=== PATIENT | female | born 1950 | race Caucasian/White ===

== ENCOUNTER 2017-06-16 13:29 | Inpatient (IN) | payer MEDICARE, MEDICAID ==
[~2017-06-16] VITALS: Ht 160 cm; Wt 78.0 kg
[2017-06-16] MEDS ORDERED: MAGNESIUM HYDROXIDE 30 ML UDC PO PRN (15:30)
[2017-06-16] MEDS ORDERED: ZOLPIDEM TARTRATE 10 MG TABLET PO PRN (15:30)
[2017-06-16] MEDS ORDERED: MAG HYDROX/AL HYDROX/SIMETH 30 ML UDC PO PRN (15:30)
[2017-06-16] MEDS ORDERED: ACETAMINOPHEN 325 MG TABLET PO PRN (15:30)
[2017-06-16] MEDS ORDERED: LORAZEPAM 0.5 MG TABLET PO PRN (15:30)
[2017-06-16] MEDS ORDERED: LAMO100T2 PO (15:50)
[2017-06-16] MEDS ORDERED: LOSA50TA21 PO (15:50)
[2017-06-16] MEDS ORDERED: CITR30SO PO (15:50)
[2017-06-16] MEDS ORDERED: CALC0.253 PO (15:50)
[2017-06-16] MEDS ORDERED: ARIP15TA3 PO (15:50)
[2017-06-16] MEDS ORDERED: HYDR-4076 PO (15:50)
[2017-06-16] MEDS ORDERED: FURO-145 PO (15:50)
[2017-06-16] MEDS ORDERED: DIVA250T4 PO (15:50)
[2017-06-16 16:54] VITALS: BP 150/80
[2017-06-16 16:56] VITALS: BP 150/80
[2017-06-16 20:00] VITALS: BP_SYST 122; BP_SYST 146; BP_DIAS 64; BP_DIAS 80
[2017-06-16] MEDS: hydrALAZINE HCL 25 MG TABLET PO SCH (21:20)
[2017-06-16] MEDS: LOSARTAN POTASSIUM 50 MG TABLET PO SCH (21:20)
[2017-06-16] MEDS: LamoTRIgine 100 MG TABLET PO SCH (21:21)
[2017-06-16] MEDS: ARIPIPRAZOLE 5 MG TABLET PO SCH (21:21)
[2017-06-17 08:00] VITALS: BP 134/61
[2017-06-17 08:39] LABS: ALBUMIN 2.9 g/dL (3.4-5.0); BILIRUBIN,TOTAL 0.2 mg/dL (0.2-1.0); CALCIUM, SERUM 8.6 mg/dL (8.5-10.1); CHOLESTEROL 185 mg/dL (<200); CREATININE 3.3 mg/dL (0.6-1.3); HDL CHOLESTEROL 108 mg/dL (40-60); LDL 62 mg/dL (0-99); TOTAL PROTEIN, SERUM 6.5 g/dL (6.4-8.2); TRIGLYCERIDES 40 mg/dL (30-150)
[2017-06-17] MEDS: DIVALPROEX SODIUM 500 MG TABLET.DR PO SCH ×2 (10:54→13:23)
[2017-06-17] MEDS: CITRIC ACID/SODIUM CITRATE (BICITRA)15 ML UDC PO SCH ×2 (10:54→17:13)
[2017-06-17] MEDS: FUROSEMIDE 20 MG TABLET PO SCH (10:54)
[2017-06-17 16:00] VITALS: BP 171/88
[2017-06-17 20:00] VITALS: BP 148/85
[2017-06-17] MEDS: ARIPIPRAZOLE 5 MG TABLET PO SCH (22:12)
[2017-06-17] MEDS: LamoTRIgine 100 MG TABLET PO SCH (22:12)
[2017-06-17] MEDS: hydrALAZINE HCL 25 MG TABLET PO SCH (22:13)
[2017-06-17] MEDS: LOSARTAN POTASSIUM 50 MG TABLET PO SCH (22:14)
[2017-06-18 08:00] VITALS: BP 124/71
[2017-06-18] MEDS: CITRIC ACID/SODIUM CITRATE (BICITRA)15 ML UDC PO SCH ×2 (08:52→16:43)
[2017-06-18] MEDS: FUROSEMIDE 20 MG TABLET PO SCH (08:52)
[2017-06-18] MEDS: DIVALPROEX SODIUM 500 MG TABLET.DR PO SCH ×2 (08:52→12:14)
[2017-06-18 16:00] VITALS: BP 148/81
[2017-06-18 20:00] VITALS: BP 147/75
[2017-06-18] MEDS: ARIPIPRAZOLE 5 MG TABLET PO SCH (21:17)
[2017-06-18] MEDS: LamoTRIgine 100 MG TABLET PO SCH (21:18)
[2017-06-18] MEDS: hydrALAZINE HCL 25 MG TABLET PO SCH (21:18)
[2017-06-18] MEDS: LOSARTAN POTASSIUM 50 MG TABLET PO SCH (21:19)
[2017-06-19 08:19] VITALS: BP 126/63
[2017-06-19] MEDS: DIVALPROEX SODIUM 500 MG TABLET.DR PO SCH ×2 (09:06→13:02)
[2017-06-19] MEDS: FUROSEMIDE 20 MG TABLET PO SCH (09:06)
[2017-06-19] MEDS: CITRIC ACID/SODIUM CITRATE (BICITRA)15 ML UDC PO SCH ×2 (09:06→17:10)
[2017-06-19 16:00] VITALS: BP 151/79
[2017-06-19 19:48] VITALS: BP 158/81
[2017-06-19] MEDS: ARIPIPRAZOLE 5 MG TABLET PO SCH (21:08)
[2017-06-19] MEDS: hydrALAZINE HCL 25 MG TABLET PO SCH (21:09)
[2017-06-19] MEDS: LamoTRIgine 100 MG TABLET PO SCH (21:09)
[2017-06-19] MEDS: LOSARTAN POTASSIUM 50 MG TABLET PO SCH (21:09)
[2017-06-20 08:00] VITALS: BP 145/90
[2017-06-20] MEDS: FUROSEMIDE 20 MG TABLET PO SCH (08:50)
[2017-06-20] MEDS: DIVALPROEX SODIUM 500 MG TABLET.DR PO SCH ×2 (08:50→12:28)
[2017-06-20] MEDS: CITRIC ACID/SODIUM CITRATE (BICITRA)15 ML UDC PO SCH ×2 (08:50→17:29)
[2017-06-20 15:58] VITALS: BP 165/87
[2017-06-20 19:50] VITALS: BP 157/84
[2017-06-20] MEDS: LamoTRIgine 100 MG TABLET PO SCH (22:04)
[2017-06-20] MEDS: ARIPIPRAZOLE 5 MG TABLET PO SCH (22:04)
[2017-06-20] MEDS: LOSARTAN POTASSIUM 50 MG TABLET PO SCH (22:04)
[2017-06-20] MEDS: hydrALAZINE HCL 25 MG TABLET PO SCH (22:05)
[2017-06-21 08:00] VITALS: BP 151/80
[2017-06-21] MEDS: FUROSEMIDE 20 MG TABLET PO SCH (09:01)
[2017-06-21] MEDS: CITRIC ACID/SODIUM CITRATE (BICITRA)15 ML UDC PO SCH ×2 (09:01→16:54)
[2017-06-21] MEDS: DIVALPROEX SODIUM 500 MG TABLET.DR PO SCH ×2 (09:01→13:15)
[2017-06-21 16:00] VITALS: BP 156/64
[2017-06-21 20:02] VITALS: BP 186/80
[2017-06-21] MEDS: ARIPIPRAZOLE 5 MG TABLET PO SCH (21:14)
[2017-06-21] MEDS: hydrALAZINE HCL 25 MG TABLET PO SCH (21:16)
[2017-06-21] MEDS: LOSARTAN POTASSIUM 50 MG TABLET PO SCH (21:17)
[2017-06-21] MEDS: LamoTRIgine 100 MG TABLET PO SCH (21:17)
[2017-06-21 22:00] VITALS: BP 135/74
[2017-06-22 06:48] LABS: BASOPHILS % (AUTO) 0.9 % (0.0-2.0); EOSINOPHILS % (AUTO) 3.9 % (0.0-6.0); HEMATOCRIT 26 % (33-45); HEMOGLOBIN 8.8 g/dL (11.5-14.8); LYMPHOCYTES # (AUTO) 1.3 /CMM (0.8-4.8); LYMPHOCYTES % (AUTO) 35.5 % (20.0-44.0); MEAN CORPUSCULAR HGB CONC 34 g/dl (31.0-36.0); MEAN CORPUSCULAR VOLUME 88 fL (82-100); MONOCYTES # (AUTO) 0.5 /CMM (0.1-1.30); MONOCYTES % (AUTO) 12.7 % (2.0-12.0); NEUTROPHILS # (AUTO) 1.7 /CMM (1.8-8.9); PLATELET COUNT (AUTO) 209 /CMM (150-450); RDW COEFFICIENT OF VARIATION 13.5 (11.5-15.0); RED BLOOD CELL COUNT(AUTO) 2.95 MIL/uL (4.0-5.2); WHITE BLOOD COUNT (AUTO) 3.6 K/uL (4.3-11.0)
[2017-06-22 07:06] LABS: CALCIUM, SERUM 8.9 mg/dL (8.5-10.1); CREATININE 3.2 mg/dL (0.6-1.3); MAGNESIUM 3.2 mg/dL (1.8-2.4); PHOSPHORUS 5.1 mg/dL (2.5-4.9); POTASSIUM 5.5 mmol/L (3.5-5.1)
[2017-06-22 09:06] VITALS: BP 139/89
[2017-06-22] MEDS: CITRIC ACID/SODIUM CITRATE (BICITRA)15 ML UDC PO SCH (09:10)
[2017-06-22] MEDS: DIVALPROEX SODIUM 500 MG TABLET.DR PO SCH ×2 (09:10→12:59)
[2017-06-22] MEDS: FUROSEMIDE 20 MG TABLET PO SCH (09:10)
[2017-06-22 16:15] LABS: APPEARANCE,URINE CLEAR (CLEAR); BILIRUBIN,URINE NEGATIVE (NEGATIVE); BLOOD, URINE NEGATIVE Ery/uL (NEGATIVE); COLOR,URINE YELLOW (YELLOW); KETONES,URINE NEGATIVE (NEGATIVE); LEUKOCYTE ESTERASE ,URINE NEGATIVE (NEGATIVE); NITRITE, URINE NEGATIVE (NEGATIVE); PH,URINE 6.5 (5.0-8.0); PROTEIN,URINE 1+ mg/dl (NEGATIVE); UGLUCOSE NEGATIVE (NEGATIVE); UROBILINOGEN,URINE 0.2 EU/dL (0.2)
[2017-06-22 16:53] LABS: BACTERIA,URINE None seen /HPF (None Seen); RBC,URINE NONE SEEN /HPF (0-2); SQUAMOUS EPITHELIAL CELL,UR Rare /HPF (None Seen); WBC,URINE NONE SEEN /HPF (0-3)
[2017-06-22 16:56] LABS: CREATININE, URINE 13.7 MG/DL (30.0-125.0); URINE TOTAL PROTEIN 75.3 mg/dL (0-11.9)
[2017-06-22 17:39] LABS: EOSINOPHIL,URINE Rare
[2017-06-24] MEDS ORDERED: CALCITRIOL 0.25 MCG CAPSULE PO SCH (07:30)
== END 2017-06-22 16:20 | disposition home or self-care (01) | DRG 885 ==
LOC: GPS 13:29
PROVIDERS: ADMIT Psychiatry & Neurology Psychiatry; ATTEND Psychiatry & Neurology Psychiatry
DX: F31.10 Bipolar disorder, current episode manic without psychotic features, unspecified (principal); D64.9 Anemia, unspecified; F41.9 Anxiety disorder, unspecified; Z73.6 Limitation of activities due to disability; I10 Essential (primary) hypertension; G47.00 Insomnia, unspecified
CPT/HCPCS: 36415; 80048-TC; 80053-TC; 80061-TC; 81000-TC; 82570-TC; 83735-TC; 84100-TC; 84155-TC; 84300-TC; 85025-TC; 87081-TC

== ENCOUNTER 2023-08-17 15:18 | Inpatient (IN) | payer MEDICARE, OTHER ==
[~2023-08-17] VITALS: Ht 170.2 cm; Wt 93.4 kg
[~2023-08-17 15:18] MED LIST: CALC0.253 PO; CITR30SO PO; FURO-145 PO; HYDR-4076 PO; LOSA50TA39 PO
[2023-08-17 16:04] LABS: BASOPHILS % (AUTO) 0.1 % (0.0-2.0); HEMATOCRIT 31 % (33-45); HEMOGLOBIN 10.4 g/dL (11.5-14.8); LYMPHOCYTES # (AUTO) 0.3 K/uL (0.8-4.8); MEAN CORPUSCULAR HEMOGLOBIN 33 PG (26.0-33.0); MEAN CORPUSCULAR HGB CONC 33 g/dl (31.0-36.0); MEAN CORPUSCULAR VOLUME 99 fL (82-100); MONOCYTES # (AUTO) 0.5 K/uL (0.1-1.30); MONOCYTES % (AUTO) 5.7 % (2.0-12.0); NEUTROPHILS # (AUTO) 7.2 K/uL (1.8-8.9); NEUTROPHILS % (AUTO) 90.2 % (43.0-81.0); PLATELET COUNT (AUTO) 92 K/uL (150-450); RED BLOOD CELL COUNT(AUTO) 3.16 MIL/uL (4.0-5.2); RED CELL DISTRIBUTION WIDTH 18.1 % (11.5-15.0)
[2023-08-17] MEDS ORDERED: ARIP10TA9 PO (16:10)
[2023-08-17] MEDS ORDERED: BISA10SU11 RC (16:10)
[2023-08-17] MEDS ORDERED: LATA7.5D EACHEYE (16:10)
[2023-08-17] MEDS ORDERED: DIVA-78 PO (16:10)
[2023-08-17] MEDS ORDERED: [UNRECOGNIZED DRUG - OTHER] PO (16:10)
[2023-08-17] MEDS ORDERED: AMLO10TA4 PO (16:10)
[2023-08-17] MEDS ORDERED: BENZ-13 PO (16:10)
[2023-08-17] MEDS ORDERED: BUDE0.5A4 IH (16:10)
[2023-08-17] MEDS ORDERED: LOSA100T31 PO (16:10)
[2023-08-17] MEDS ORDERED: LABE300T2 PO (16:10)
[2023-08-17] MEDS ORDERED: LAMO100T17 PO (16:10)
[2023-08-17] MEDS ORDERED: ACET-2030 PO (16:10)
[2023-08-17] MEDS ORDERED: ASCO-352 PO (16:10)
[2023-08-17] MEDS ORDERED: FOLI0.8T2 PO (16:10)
[2023-08-17] MEDS ORDERED: SEVE0.8P3 PO (16:10)
[2023-08-17] MEDS ORDERED: POLY17PO4 PO (16:10)
[2023-08-17] MEDS ORDERED: MUPI22OI7 TP (16:10)
[2023-08-17] MEDS ORDERED: APIX2.5T PO (16:10)
[2023-08-17] MEDS ORDERED: IPRA0.2S49 IH (16:10)
[2023-08-17 16:17] LABS: CARBON DIOXIDE 24 mmol/L (21-32); CHLORIDE 95 mmol/L (98-107); CREATININE 4.3 mg/dL (0.6-1.3); GLUCOSE 126 mg/dL (74-106); POTASSIUM 5.5 mmol/L (3.5-5.1); SODIUM SERUM 132 mmol/L (136-145); UREA NITROGEN, BLOOD 55 mg/dL (7-18)
[2023-08-17 16:18] LABS: INR 1.21 (0.91-1.10); PARTIAL THROMBOPLASTIN TIME 33.8 SEC (24.3-34.3); PROTHROMBIN TIME 12.7 SECS (9.2-11.1)
[2023-08-17 16:30] LABS: ALANINE AMINOTRANSFERASE 19 U/L (12-78); ALBUMIN 2.6 g/dL (3.4-5.0); ALKALINE PHOSPHATASE 299 U/L (46-116); ASPARTATE AMINOTRANSFERASE 23 U/L (15-37); BILIRUBIN,DIRECT 0.2 mg/dL (0.0-0.2); BILIRUBIN,TOTAL 0.9 mg/dL (0.2-1.0); NT-PRO BNP > 25000 pg/mL (0-125); TOTAL PROTEIN, SERUM 7.1 g/dL (6.4-8.2)
[2023-08-17] MEDS ORDERED: MAG HYDROX/AL HYDROX/SIMETH 30 ML UDC PO PRN (18:00)
[2023-08-17] MEDS ORDERED: ZOLPIDEM TARTRATE 5 MG TABLET PO PRN (18:00)
[2023-08-17] MEDS ORDERED: Z GUARD REMEDY 4 OZ OINT TP PRN (18:00)
[2023-08-17] MEDS ORDERED: ONDANSETRON HCL/PF 4 MG/2 ML VIAL IVP PRN (18:00)
[2023-08-17] MEDS ORDERED: MAGNESIUM HYDROXIDE 30 ML UDC PO PRN (18:00)
[2023-08-17] MEDS ORDERED: BISACODYL SUPP (10 MG) 10 MG/SUPP.RECT SUPP.RECT RC PRN (18:30)
[2023-08-17] MEDS ORDERED: TSP PO PRN (18:30)
[2023-08-17 19:30] VITALS: BP 113/72; TEMP 97.6; O2SAT 97
[2023-08-17 20:00] VITALS: BP 124/78; O2SAT 98
[2023-08-17] MEDS ORDERED: ENOXAPARIN SODIUM 30 MG/0.3 ML DISP.SYRIN SQ SCH ×2 (20:00→21:00)
[2023-08-17 20:13] VITALS: O2SAT 97
[2023-08-17 21:00] VITALS: BP 116/69
[2023-08-17] MEDS: EPOETIN ALFA (10,000 UNIT) 10,000 UNIT/ML VIAL IV ONE (21:11)
[2023-08-17] MEDS: LATANOPROST EYE DROP 0.005% 2.5 ML BOTTLE EACHEYE SCH (21:11)
[2023-08-17 22:00] VITALS: BP 108/65; O2SAT 97
[2023-08-17] MEDS: LamoTRIgine 100 MG TABLET PO SCH (22:01)
[2023-08-17] MEDS: ACETAMINOPHEN 325 MG TABLET PO PRN (22:09)
[2023-08-17 23:00] VITALS: BP 112/70; O2SAT 95
[2023-08-18] VITALS (32 sets, daily range): BP systolic 107–150; BP diastolic 58–98; TEMP 97.5–98; O2SAT 86–97
[2023-08-18 07:17] LABS: BASOPHILS % (AUTO) 0.3 % (0.0-2.0); EOSINOPHILS % (AUTO) 0.5 % (0.0-6.0); HEMATOCRIT 32 % (33-45); HEMOGLOBIN 10.5 g/dL (11.5-14.8); LYMPHOCYTES # (AUTO) 0.5 K/uL (0.8-4.8); LYMPHOCYTES % (AUTO) 7.4 % (20.0-44.0); MEAN CORPUSCULAR HEMOGLOBIN 33 PG (26.0-33.0); MEAN CORPUSCULAR HGB CONC 33 g/dl (31.0-36.0); MEAN CORPUSCULAR VOLUME 101 fL (82-100); MONOCYTES # (AUTO) 0.5 K/uL (0.1-1.30); MONOCYTES % (AUTO) 8.7 % (2.0-12.0); NEUTROPHILS # (AUTO) 5.1 K/uL (1.8-8.9); NEUTROPHILS % (AUTO) 83.1 % (43.0-81.0); PLATELET COUNT (AUTO) 73 K/uL (150-450); RED BLOOD CELL COUNT(AUTO) 3.15 MIL/uL (4.0-5.2); RED CELL DISTRIBUTION WIDTH 18.3 % (11.5-15.0); WHITE BLOOD COUNT (AUTO) 6.1 K/uL (4.3-11.0)
[2023-08-18 07:23] LABS: CALCIUM, SERUM 9.6 mg/dL (8.5-10.1); CREATININE 3.5 mg/dL (0.6-1.3); MAGNESIUM 2.5 mg/dL (1.8-2.4); PHOSPHORUS 6.3 mg/dL (2.5-4.9); POTASSIUM 5.9 mmol/L (3.5-5.1)
[2023-08-18] MEDS: PANTOPRAZOLE 40 MG TABLET.DR PO SCH (08:00)
[2023-08-18] MEDS: SEVELAMER CARBONATE 800 MG POWD.PACK PO SCH (08:00)
[2023-08-18] MEDS: APIXABAN 2.5 MG TABLET PO SCH (09:00)
[2023-08-18] MEDS ORDERED: BUDESONIDE RESPULE INH 0.5 MG/2 ML AMPUL.NEB IH SCH (09:00)
[2023-08-18] MEDS ORDERED: LOSARTAN POTASSIUM 50 MG TABLET PO SCH (09:00)
[2023-08-18] MEDS: DIVALPROEX SODIUM 500 MG TABLET.DR PO SCH (09:35)
[2023-08-18] MEDS: ASCORBIC ACID 500 MG TABLET PO SCH (09:35)
[2023-08-18] MEDS: AMLODIPINE BESYLATE 10 MG TABLET PO SCH (09:36)
[2023-08-18] MEDS: ARIPIPRAZOLE 5 MG TABLET PO SCH (09:36)
[2023-08-18] MEDS: MUPIROCIN OINT 2% 22 GM TUBE TP SCH (09:37)
[2023-08-18] MEDS: LABETALOL HCL (100MG) 100 MG TABLET PO SCH (09:37)
[2023-08-18] MEDS: VIT B CMPLX 3/FA/VIT C/BIOTIN 1 TAB TABLET PO SCH (09:38)
[2023-08-18 10:35] LABS: ANISOCYTOSIS 1+; BASOPHILS % (MANUAL) 0 % (0.0-2.0); EOSINOPHILS % (MANUAL) 0 % (0-4); LYMPHOCYTES % (MANUAL) 6 % (16-48); MONOCYTES % (MANUAL) 9 % (0-11.0); NEUTROPHILS % (MANUAL) 85 (42-76); PLATELET ESTIMATE DECREASED
[2023-08-18] MEDS: IPRATROPIUM NEB FS 0.5 MG/2.5 ML AMPUL.NEB NEB SCH (16:05)
[2023-08-18] MEDS: SIMETHICONE 80 MG TAB.CHEW PO PRN (16:21)
[2023-08-18] MEDS: BUDESONIDE RESPULE INH 0.5 MG/2 ML AMPUL.NEB IH SCH (19:36)
[2023-08-19] VITALS (87 sets, daily range): BP systolic 111–144; BP diastolic 55–86; TEMP 97.8–98.4; O2SAT 89–100
[2023-08-19 04:39] LABS: BASOPHILS % (AUTO) 0.6 % (0.0-2.0); EOSINOPHILS % (AUTO) 0.2 % (0.0-6.0); HEMATOCRIT 30 % (33-45); HEMOGLOBIN 9.8 g/dL (11.5-14.8); LYMPHOCYTES # (AUTO) 0.4 K/uL (0.8-4.8); LYMPHOCYTES % (AUTO) 8.8 % (20.0-44.0); MEAN CORPUSCULAR HEMOGLOBIN 33 PG (26.0-33.0); MEAN CORPUSCULAR HGB CONC 33 g/dl (31.0-36.0); MEAN CORPUSCULAR VOLUME 100 fL (82-100); MONOCYTES # (AUTO) 0.6 K/uL (0.1-1.30); MONOCYTES % (AUTO) 11.8 % (2.0-12.0); NEUTROPHILS # (AUTO) 3.9 K/uL (1.8-8.9); NEUTROPHILS % (AUTO) 78.6 % (43.0-81.0); PLATELET COUNT (AUTO) 79 K/uL (150-450); RED CELL DISTRIBUTION WIDTH 17.6 % (11.5-15.0)
[2023-08-19 04:52] LABS: CALCIUM, SERUM 9.7 mg/dL (8.5-10.1); CREATININE 3.3 mg/dL (0.6-1.3); MAGNESIUM 2.4 mg/dL (1.8-2.4); PHOSPHORUS 6.1 mg/dL (2.5-4.9); POTASSIUM 4.4 mmol/L (3.5-5.1)
[2023-08-19 05:18] LABS: BASOPHILS % (MANUAL) 0 % (0.0-2.0); EOSINOPHILS % (MANUAL) 0 % (0-4); LYMPHOCYTES % (MANUAL) 9 % (16-48); MONOCYTES % (MANUAL) 10 % (0-11.0); NEUTROPHILS % (MANUAL) 81 (42-76); PLATELET ESTIMATE DECREASED
[2023-08-19 05:19] LABS: ANISOCYTOSIS 1+; HYPOCHROMASIA 1+
[2023-08-19] MEDS: SEVELAMER CARBONATE 800 MG TABLET PO SCH (09:22)
[2023-08-19 11:07] LABS: HEPATITIS B SURFACE AB Reactive (.)
[2023-08-20] VITALS (55 sets, daily range): BP systolic 117–154; BP diastolic 55–109; TEMP 97.3–98; O2SAT 20–100
[2023-08-20 05:03] LABS: BASOPHILS % (AUTO) 0.3 % (0.0-2.0); EOSINOPHILS % (AUTO) 0.4 % (0.0-6.0); HEMATOCRIT 31 % (33-45); HEMOGLOBIN 10.2 g/dL (11.5-14.8); LYMPHOCYTES # (AUTO) 0.5 K/uL (0.8-4.8); LYMPHOCYTES % (AUTO) 8.8 % (20.0-44.0); MEAN CORPUSCULAR HEMOGLOBIN 33 PG (26.0-33.0); MEAN CORPUSCULAR HGB CONC 33 g/dl (31.0-36.0); MEAN CORPUSCULAR VOLUME 98 fL (82-100); MONOCYTES # (AUTO) 0.8 K/uL (0.1-1.30); MONOCYTES % (AUTO) 15.9 % (2.0-12.0); NEUTROPHILS # (AUTO) 3.9 K/uL (1.8-8.9); NEUTROPHILS % (AUTO) 74.6 % (43.0-81.0); PLATELET COUNT (AUTO) 81 K/uL (150-450); RED BLOOD CELL COUNT(AUTO) 3.11 MIL/uL (4.0-5.2); RED CELL DISTRIBUTION WIDTH 17.4 % (11.5-15.0); WHITE BLOOD COUNT (AUTO) 5.2 K/uL (4.3-11.0)
[2023-08-20 05:16] LABS: CALCIUM, SERUM 8.9 mg/dL (8.5-10.1); MAGNESIUM 2.2 mg/dL (1.8-2.4)
[2023-08-20 05:32] LABS: ANISOCYTOSIS 1+; BASOPHILS % (MANUAL) 0 % (0.0-2.0); EOSINOPHILS % (MANUAL) 0 % (0-4); LYMPHOCYTES % (MANUAL) 10 % (16-48); MONOCYTES % (MANUAL) 18 % (0-11.0); NEUTROPHILS % (MANUAL) 72 (42-76); PLATELET ESTIMATE DECREASED
[2023-08-20] MEDS: ACETAMINOPHEN ES 500 MG TABLET PO PRN (23:15)
[2023-08-21] VITALS (11 sets, daily range): BP systolic 108–153; BP diastolic 61–78; TEMP 97.3–99.1; O2SAT 94–97
[2023-08-21 07:44] LABS: BASOPHILS % (AUTO) 0.4 % (0.0-2.0); EOSINOPHILS # (AUTO) 0.1 K/uL (0.0-0.7); EOSINOPHILS % (AUTO) 1.1 % (0.0-6.0); HEMATOCRIT 30 % (33-45); HEMOGLOBIN 9.9 g/dL (11.5-14.8); LYMPHOCYTES # (AUTO) 0.5 K/uL (0.8-4.8); LYMPHOCYTES % (AUTO) 8.5 % (20.0-44.0); MEAN CORPUSCULAR HEMOGLOBIN 33 PG (26.0-33.0); MEAN CORPUSCULAR HGB CONC 33 g/dl (31.0-36.0); MEAN CORPUSCULAR VOLUME 100 fL (82-100); MONOCYTES # (AUTO) 0.8 K/uL (0.1-1.30); MONOCYTES % (AUTO) 13.5 % (2.0-12.0); NEUTROPHILS # (AUTO) 4.3 K/uL (1.8-8.9); NEUTROPHILS % (AUTO) 76.5 % (43.0-81.0); PLATELET COUNT (AUTO) 64 K/uL (150-450); RED BLOOD CELL COUNT(AUTO) 3.03 MIL/uL (4.0-5.2); RED CELL DISTRIBUTION WIDTH 17.4 % (11.5-15.0); WHITE BLOOD COUNT (AUTO) 5.6 K/uL (4.3-11.0)
[2023-08-21 08:04] LABS: CALCIUM, SERUM 9.8 mg/dL (8.5-10.1); CREATININE 3.4 mg/dL (0.6-1.3)
[2023-08-21 08:05] LABS: MAGNESIUM 2.4 mg/dL (1.8-2.4); PHOSPHORUS 4.8 mg/dL (2.5-4.9)
[2023-08-21 09:15] LABS: EOSINOPHILS % (MANUAL) 1 % (0-4); LYMPHOCYTES % (MANUAL) 9 % (16-48); MONOCYTES % (MANUAL) 14 % (0-11.0); NEUTROPHILS % (MANUAL) 76 (42-76)
[2023-08-21 09:16] LABS: ANISOCYTOSIS 1+; PLATELET ESTIMATE DECREASED
[2023-08-21] MEDS: POLYETHYLENE GLYCOL 3350 17 GM POWD.PACK PO PRN (13:11)
[2023-08-22] VITALS (37 sets, daily range): BP systolic 116–147; BP diastolic 62–83; TEMP 97.2–98.4; O2SAT 91–100
[2023-08-22 06:59] LABS: BASOPHILS % (AUTO) 0.5 % (0.0-2.0); EOSINOPHILS # (AUTO) 0.1 K/uL (0.0-0.7); EOSINOPHILS % (AUTO) 1.1 % (0.0-6.0); HEMATOCRIT 32 % (33-45); HEMOGLOBIN 10.2 g/dL (11.5-14.8); LYMPHOCYTES # (AUTO) 0.5 K/uL (0.8-4.8); LYMPHOCYTES % (AUTO) 7.5 % (20.0-44.0); MEAN CORPUSCULAR HEMOGLOBIN 33 PG (26.0-33.0); MEAN CORPUSCULAR HGB CONC 32 g/dl (31.0-36.0); MEAN CORPUSCULAR VOLUME 101 fL (82-100); MONOCYTES # (AUTO) 0.9 K/uL (0.1-1.30); MONOCYTES % (AUTO) 14.9 % (2.0-12.0); NEUTROPHILS # (AUTO) 4.8 K/uL (1.8-8.9); PLATELET COUNT (AUTO) 63 K/uL (150-450); RED BLOOD CELL COUNT(AUTO) 3.15 MIL/uL (4.0-5.2); RED CELL DISTRIBUTION WIDTH 17.6 % (11.5-15.0); WHITE BLOOD COUNT (AUTO) 6.4 K/uL (4.3-11.0)
[2023-08-22 07:11] LABS: CALCIUM, SERUM 9.4 mg/dL (8.5-10.1); MAGNESIUM 2.2 mg/dL (1.8-2.4); PHOSPHORUS 4.6 mg/dL (2.5-4.9); POTASSIUM 4.4 mmol/L (3.5-5.1)
[2023-08-22 12:04] LABS: ANISOCYTOSIS 1+; BASOPHILS % (MANUAL) 0 % (0.0-2.0); EOSINOPHILS % (MANUAL) 2 % (0-4); LYMPHOCYTES % (MANUAL) 9 % (16-48); MONOCYTES % (MANUAL) 15 % (0-11.0); NEUTROPHILS % (MANUAL) 74 (42-76); PLATELET ESTIMATE DECREASED
[2023-08-22 12:05] LABS: OVALOCYTES 1+
[2023-08-22 13:07] LABS: ABG BASE EXCESS 1.3 mmol/L; ABG OXYGEN SATURATION 93.6 % (92.0-98.5); ABG PCO2 60.2 mmHg (35.0-45.0); ABG PH 7.298 (7.350-7.450); ABG PO2 77.2 mmHg (75.0-100.0); ABG TOTAL HEMOGLOBIN 11.5 G/dL (12.0-16.0); AaDO2 226.1 mmHg; COHb 0.9 % (0.5-1.5); MetHb 0.1 % (0.0-1.5); O2Hb 92.7 % (94.0-97.0); SITE, ABG Right Radial; VENT MODE, BG bipap 15/5 r20
[2023-08-22 16:25] LABS: ABG BASE EXCESS 2.4 mmol/L; ABG OXYGEN SATURATION 95.4 % (92.0-98.5); ABG PCO2 46.9 mmHg (35.0-45.0); ABG PH 7.391 (7.350-7.450); ABG PO2 82.7 mmHg (75.0-100.0); ABG TOTAL HEMOGLOBIN 10.8 G/dL (12.0-16.0); AaDO2 148.6 mmHg; COHb 0.4 % (0.5-1.5); MetHb 0.2 % (0.0-1.5); O2Hb 94.8 % (94.0-97.0); SITE, ABG Right Radial; VENT MODE, BG bipap 25/5 r20 40%
[2023-08-23] VITALS (35 sets, daily range): BP systolic 117–157; BP diastolic 63–93; TEMP 97.4–98.3; O2SAT 88–100
[2023-08-23 04:31] LABS: BASOPHILS % (AUTO) 0.3 % (0.0-2.0); EOSINOPHILS # (AUTO) 0.2 K/uL (0.0-0.7); EOSINOPHILS % (AUTO) 2.8 % (0.0-6.0); HEMATOCRIT 30 % (33-45); HEMOGLOBIN 9.7 g/dL (11.5-14.8); LYMPHOCYTES # (AUTO) 0.5 K/uL (0.8-4.8); LYMPHOCYTES % (AUTO) 8.6 % (20.0-44.0); MEAN CORPUSCULAR HEMOGLOBIN 33 PG (26.0-33.0); MEAN CORPUSCULAR HGB CONC 33 g/dl (31.0-36.0); MEAN CORPUSCULAR VOLUME 101 fL (82-100); MONOCYTES % (AUTO) 16.7 % (2.0-12.0); NEUTROPHILS # (AUTO) 4.3 K/uL (1.8-8.9); NEUTROPHILS % (AUTO) 71.6 % (43.0-81.0); PLATELET COUNT (AUTO) 66 K/uL (150-450); RED BLOOD CELL COUNT(AUTO) 2.97 MIL/uL (4.0-5.2); RED CELL DISTRIBUTION WIDTH 16.7 % (11.5-15.0)
[2023-08-23 05:41] LABS: ANISOCYTOSIS 1+; BASOPHILS % (MANUAL) 0 % (0.0-2.0); EOSINOPHILS % (MANUAL) 6 % (0-4); HYPOCHROMASIA 1+; LYMPHOCYTES % (MANUAL) 7 % (16-48); MONOCYTES % (MANUAL) 14 % (0-11.0); NEUTROPHILS % (MANUAL) 75 (42-76); OVALOCYTES 1+; PLATELET ESTIMATE DECREASED
[2023-08-23 05:59] LABS: CALCIUM, SERUM 9.1 mg/dL (8.5-10.1); CREATININE 2.8 mg/dL (0.6-1.3); MAGNESIUM 2.2 mg/dL (1.8-2.4); PHOSPHORUS 3.6 mg/dL (2.5-4.9)
[2023-08-24] VITALS (34 sets, daily range): BP systolic 109–149; BP diastolic 62–93; TEMP 97.8–98.4; O2SAT 92–100
[2023-08-24 09:19] LABS: ABG BASE EXCESS -1.1 mmol/L; ABG OXYGEN SATURATION 93.9 % (92.0-98.5); ABG PCO2 57.4 mmHg (35.0-45.0); ABG PO2 81.9 mmHg (75.0-100.0); ABG TOTAL HEMOGLOBIN 11.5 G/dL (12.0-16.0); AaDO2 108.2 mmHg; COHb 1.2 % (0.5-1.5); MetHb 0.1 % (0.0-1.5); O2Hb 92.7 % (94.0-97.0); SITE, ABG Right Radial; VENT MODE, BG NASAL CANNULA
[2023-08-24 09:52] LABS: BASOPHILS % (AUTO) 0.5 % (0.0-2.0); EOSINOPHILS # (AUTO) 0.2 K/uL (0.0-0.7); EOSINOPHILS % (AUTO) 1.8 % (0.0-6.0); HEMATOCRIT 32 % (33-45); HEMOGLOBIN 10.4 g/dL (11.5-14.8); LYMPHOCYTES # (AUTO) 0.6 K/uL (0.8-4.8); LYMPHOCYTES % (AUTO) 7.1 % (20.0-44.0); MEAN CORPUSCULAR HEMOGLOBIN 32 PG (26.0-33.0); MEAN CORPUSCULAR HGB CONC 32 g/dl (31.0-36.0); MEAN CORPUSCULAR VOLUME 100 fL (82-100); NEUTROPHILS # (AUTO) 6.8 K/uL (1.8-8.9); NEUTROPHILS % (AUTO) 78.6 % (43.0-81.0); PLATELET COUNT (AUTO) 80 K/uL (150-450); RED BLOOD CELL COUNT(AUTO) 3.24 MIL/uL (4.0-5.2); RED CELL DISTRIBUTION WIDTH 17.7 % (11.5-15.0); WHITE BLOOD COUNT (AUTO) 8.7 K/uL (4.3-11.0)
[2023-08-24 10:01] LABS: CALCIUM, SERUM 9.9 mg/dL (8.5-10.1); CREATININE 3.9 mg/dL (0.6-1.3); POTASSIUM 4.1 mmol/L (3.5-5.1)
[2023-08-24 10:08] LABS: ALBUMIN 2.1 g/dL (3.4-5.0); TOTAL PROTEIN, SERUM 6.6 g/dL (6.4-8.2)
[2023-08-24 12:05] LABS: ANISOCYTOSIS 1+; BASOPHILS % (MANUAL) 0 % (0.0-2.0); EOSINOPHILS % (MANUAL) 1 % (0-4); LYMPHOCYTES % (MANUAL) 8 % (16-48); MONOCYTES % (MANUAL) 11 % (0-11.0); NEUTROPHILS % (MANUAL) 81 (42-76); PLATELET ESTIMATE DECREASED
[2023-08-24] MEDS ORDERED: ALBUMIN 25% 25 GM in PREMIX 1 EA IV PRN (17:00)
[2023-08-25] VITALS (34 sets, daily range): BP systolic 96–139; BP diastolic 55–87; TEMP 97–98.1; O2SAT 95–100
[2023-08-25 04:58] LABS: BASOPHILS # (AUTO) 0.1 K/uL (0.0-0.2); BASOPHILS % (AUTO) 0.8 % (0.0-2.0); EOSINOPHILS # (AUTO) 0.2 K/uL (0.0-0.7); HEMATOCRIT 31 % (33-45); HEMOGLOBIN 9.9 g/dL (11.5-14.8); LYMPHOCYTES # (AUTO) 0.6 K/uL (0.8-4.8); LYMPHOCYTES % (AUTO) 9.6 % (20.0-44.0); MEAN CORPUSCULAR HEMOGLOBIN 32 PG (26.0-33.0); MEAN CORPUSCULAR HGB CONC 32 g/dl (31.0-36.0); MEAN CORPUSCULAR VOLUME 99 fL (82-100); MONOCYTES # (AUTO) 0.8 K/uL (0.1-1.30); MONOCYTES % (AUTO) 11.9 % (2.0-12.0); NEUTROPHILS # (AUTO) 4.8 K/uL (1.8-8.9); NEUTROPHILS % (AUTO) 74.7 % (43.0-81.0); PLATELET COUNT (AUTO) 85 K/uL (150-450); RED BLOOD CELL COUNT(AUTO) 3.08 MIL/uL (4.0-5.2); RED CELL DISTRIBUTION WIDTH 16.6 % (11.5-15.0); WHITE BLOOD COUNT (AUTO) 6.4 K/uL (4.3-11.0)
[2023-08-25 05:10] LABS: ALBUMIN 1.9 g/dL (3.4-5.0); BILIRUBIN,TOTAL 0.9 mg/dL (0.2-1.0); CALCIUM, SERUM 9.8 mg/dL (8.5-10.1); POTASSIUM 3.6 mmol/L (3.5-5.1); TOTAL PROTEIN, SERUM 6.1 g/dL (6.4-8.2)
[2023-08-25 05:42] LABS: ANISOCYTOSIS 1+; BASOPHILS % (MANUAL) 0 % (0.0-2.0); EOSINOPHILS % (MANUAL) 3 % (0-4); LYMPHOCYTES % (MANUAL) 10 % (16-48); MONOCYTES % (MANUAL) 11 % (0-11.0); NEUTROPHILS % (MANUAL) 76 (42-76); OVALOCYTES 1+; PLATELET ESTIMATE DECREASED; STOMATOCYTES 1+
[2023-08-26] VITALS (25 sets, daily range): BP systolic 111–154; BP diastolic 52–107; TEMP 97.5–97.9; O2SAT 95–100
[2023-08-26 04:50] LABS: BASOPHILS % (AUTO) 0.6 % (0.0-2.0); EOSINOPHILS # (AUTO) 0.1 K/uL (0.0-0.7); EOSINOPHILS % (AUTO) 2.4 % (0.0-6.0); HEMATOCRIT 29 % (33-45); HEMOGLOBIN 9.2 g/dL (11.5-14.8); LYMPHOCYTES # (AUTO) 0.7 K/uL (0.8-4.8); LYMPHOCYTES % (AUTO) 12.4 % (20.0-44.0); MEAN CORPUSCULAR HEMOGLOBIN 33 PG (26.0-33.0); MEAN CORPUSCULAR HGB CONC 32 g/dl (31.0-36.0); MEAN CORPUSCULAR VOLUME 101 fL (82-100); MONOCYTES # (AUTO) 0.7 K/uL (0.1-1.30); MONOCYTES % (AUTO) 12.7 % (2.0-12.0); NEUTROPHILS % (AUTO) 71.9 % (43.0-81.0); PLATELET COUNT (AUTO) 90 K/uL (150-450); RED BLOOD CELL COUNT(AUTO) 2.83 MIL/uL (4.0-5.2); RED CELL DISTRIBUTION WIDTH 17.1 % (11.5-15.0); WHITE BLOOD COUNT (AUTO) 5.6 K/uL (4.3-11.0)
[2023-08-26 05:03] LABS: ALANINE AMINOTRANSFERASE 6 U/L (12-78); ALBUMIN 1.9 g/dL (3.4-5.0); ALKALINE PHOSPHATASE 168 U/L (46-116); ASPARTATE AMINOTRANSFERASE < 5 U/L (15-37); BILIRUBIN,TOTAL 0.8 mg/dL (0.2-1.0); CALCIUM, SERUM 9.1 mg/dL (8.5-10.1); CARBON DIOXIDE 28 mmol/L (21-32); CHLORIDE 99 mmol/L (98-107); CREATININE 2.9 mg/dL (0.6-1.3); GLUCOSE 81 mg/dL (74-106); POTASSIUM 3.6 mmol/L (3.5-5.1); SODIUM SERUM 136 mmol/L (136-145); TOTAL PROTEIN, SERUM 5.9 g/dL (6.4-8.2); UREA NITROGEN, BLOOD 22 mg/dL (7-18)
[2023-08-26 06:03] LABS: ANISOCYTOSIS 1+; BASOPHILS % (MANUAL) 0 % (0.0-2.0); EOSINOPHILS % (MANUAL) 3 % (0-4); LYMPHOCYTES % (MANUAL) 14 % (16-48); MONOCYTES % (MANUAL) 10 % (0-11.0); NEUTROPHILS % (MANUAL) 73 (42-76); PLATELET ESTIMATE DECREASED
[2023-08-26 06:04] LABS: OVALOCYTES 1+
[2023-08-26] MEDS: DOCUSATE SODIUM 100 MG CAPSULE PO SCH (09:17)
[2023-08-26] MEDS: POLYETHYLENE GLYCOL 3350 17 GM POWD.PACK PO SCH (09:17)
[2023-08-26 12:44] LABS: PROTEIN, BODY FLUID 2.2 G/DL
[2023-08-26 19:48] LABS: APPEARANCE,SPUN,BODY FLUID CLEAR (CLEAR); TOTAL VOLUME,BODY FLUID 1600 mL
[2023-08-26 19:55] LABS: MACROPHAGES, BODY FLUID 9; POLYNUCLEAR, BODY FLUID 32 % (0-25)
[2023-08-26 19:56] LABS: MONOCYTES,BODY FLUID 6 %
[2023-08-26 20:02] LABS: WBC, BODY FLUID 76 /cu. mm. (0-200)
== END 2023-08-26 19:50 | disposition short-term general hospital (02) | DRG 291 ==
LOC: ER 15:24 → TELE-TD 16:41 → ICU 17:32 → TELE-TD 08-21 00:05 → TELE1 08-21 00:14 → ICU 08-22 09:52
PROVIDERS: ADMIT Student in an Organized Health Care Education/Training Program; ATTEND Internal Medicine
PROC: 5A09557 Assistance with Respiratory Ventilation, Greater than 96 Consecutive Hours, Continuous Positive Airway Pressure (ICD-10-PCS; principal; 2023-08-17)
PROC: 5A1D70Z Performance of Urinary Filtration, Intermittent, Less than 6 Hours Per Day (ICD-10-PCS; 2023-08-17)
PROC: 0W993ZX Drainage of Right Pleural Cavity, Percutaneous Approach, Diagnostic (ICD-10-PCS; 2023-08-26)
DX: I13.2 Hypertensive heart and chronic kidney disease with heart failure and with stage 5 chronic kidney disease, or end stage renal disease (principal); I50.31 Acute diastolic (congestive) heart failure; J96.21 Acute and chronic respiratory failure with hypoxia; N18.6 End stage renal disease; J96.22 Acute and chronic respiratory failure with hypercapnia; E44.0 Moderate protein-calorie malnutrition; E87.1 Hypo-osmolality and hyponatremia; J90 Pleural effusion, not elsewhere classified; J98.11 Atelectasis; K56.7 Ileus, unspecified; I87.313 Chronic venous hypertension (idiopathic) with ulcer of bilateral lower extremity; L97.829 Non-pressure chronic ulcer of other part of left lower leg with unspecified severity; L97.819 Non-pressure chronic ulcer of other part of right lower leg with unspecified severity; L98.499 Non-pressure chronic ulcer of skin of other sites with unspecified severity; Z99.2 Dependence on renal dialysis; D69.6 Thrombocytopenia, unspecified; J44.9 Chronic obstructive pulmonary disease, unspecified; F20.9 Schizophrenia, unspecified; D64.9 Anemia, unspecified; Z88.8 Allergy status to other drugs, medicaments and biological substances; Z79.51 Long term (current) use of inhaled steroids; Z79.899 Other long term (current) drug therapy; E87.5 Hyperkalemia; I48.91 Unspecified atrial fibrillation; M89.8X9 Other specified disorders of bone, unspecified site; Z79.01 Long term (current) use of anticoagulants; Z82.49 Family history of ischemic heart disease and other diseases of the circulatory system; Z87.891 Personal history of nicotine dependence; Z88.0 Allergy status to penicillin
CPT/HCPCS: 31720; 36415; 36600; 71045-TC; 74018; 80048-TC; 80053-TC; 80076-TC; 82803-TC; 82962-TC; 83735-TC; 83880; 84100-TC; 84484-TC; 85025-TC; 85730-TC; 86706; 87081-TC; 87340; 89051-TC; 90935-TC; 93307-TC; 93971-TC; 94660; 94760-TC; 94762-TC; 94799-TC; 99082-TC; A4216; A4223; A6403; G0378; J0885; J7030; P9047